=== PATIENT | male | born 1940 | race Caucasian/White ===

== ENCOUNTER 2020-05-14 07:52 | Inpatient (IN) | payer MEDICARE, SELFPAY ==
[2020-05-14] VITALS (53 sets, daily range): BP systolic 77–130; BP diastolic 49–91; PULSE 0–108; RESP 13–32; TEMP 36.7–37.3; O2SAT 77–97; BMI 28.4
--- NOTE | 2020-05-14 07:58 | XR_ITS ---
WS: [id number] PORTABLE CHEST HISTORY: dyspnea/cough COMPARISON: None available. Mild pulmonary hyperexpansion. No pneumonia. Normal vasculature. No pleural effusion or pneumothorax. Cardiac size: Normal. Mediastinum/Aorta: Mild atherosclerosis aorta. Diffuse osteopenia. XR/XR chest 1V portable [id number] IMPRESSION: Chronic emphysema and partially calcified aorta. No pneumonia.
[2020-05-14 08:25] LABS: Basophils % 0.3 %; Eosinophils % 0.1 %; Hematocrit 36.9 % (42.0-52.0); Hemoglobin 11.6 g/dL (11.7-16.6); Lymphocytes # 0.6 10^3/uL (0.8-4.8); Lymphocytes % 8.7 %; Mean Corpuscular HGB Conc 31.4 g/dL (30.0-36.0); Mean Corpuscular Volume 88.9 fL (80-94); Mean Platelet Volume 12.6 fL (7.4-10.4); Monocytes # 0.6 10^3/uL (0.2-0.9); Monocytes % 9.4 %; Neutrophils # 5.51 10^3/uL (1.8-7.7); Neutrophils % 80.9 %; Nucleated Red Blood Cells % 0 %; Platelet Count 81 10^3/cmm (130-400); Red Blood Count 4.15 10^6/uL (4.1-5.3); Red Cell Distribution Width 12.7 % (12.1-15.1); White Blood Count 6.8 10^3/uL (4.0-10.0)
[2020-05-14 08:51] LABS: Albumin Level 3.8 g/dL (3.5-5.2); Alkaline Phosphatase 86 IU/L (40-130); Blood Urea Nitrogen 45 mg/dL (8-23); Calcium 8.2 mg/dL (8.5-10.5); Carbon Dioxide 23 mmol/L (22-29); Chloride 103 mmol/L (98-107); Creatine Phosphokinase 145 U/L (39-308); Globulin 2.4 g/dL (1.3-4.6); Glucose 168 mg/dL (65-115); Osmolality Calculated 299 mOsm/kg (285-295); Sodium 137 mmol/L (136-145); Total Bilirubin 0.3 mg/dL (0.15-1.2); Total Protein 6.2 g/dL (6.6-8.7)
[2020-05-14] MEDS: sodium chloride 0.9% 500 ML 999 ML IV ×2 (09:03→11:43)
[2020-05-14 09:08] LABS: Anion Gap 15.4 (5-19); Potassium 4.4 mmol/L (3.5-5.1)
[2020-05-14 09:09] LABS: Alanine Aminotransferase 29 U/L (0-41); Aspartate Amino Transferase 32 U/L (0-40)
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
[2020-05-14] MEDS: HYDROcodone-acetaminophen 5-325 mg Tablet 1 TAB PO ×3 (09:52→22:04)
--- NOTE | 2020-05-14 10:24 | ECG_ITS ---
[facility] Test Date: 2020-05-14 Pat Name: Josue De Luna Department: Room: Gender: Male Survey Operations Director: : 1940 Requested By: Steffen Mandujano Order Number: [id number] Chika MD: Nelly Johnson M.D. Measurements Intervals [place] Rate: 101 P: [place]: QRS: -6 QRSD: 78 T: 66 QT: 342 QTc: 443 Interpretive Statements ATRIAL FLUTTER/TACHYCARDIA WITH RAPID VENTRICULAR RESPONSE LOW QRS VOLTAGE IN EXTREMITY LEADS [QRS DEFLECTION < 0.5 mV IN LIMB LEADS] MODERATE ST DEPRESSION [0.05+ mV ST DEPRESSION] No previous ECG available for comparison Electronically Signed On 05-14-2020 10:27:12 MANAGER STERILE PROCESSING by Nelly Johnson M.D. [id number]
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
[2020-05-14 11:43] LABS: Troponin(5th) Baseline 29 ng/L (0-15)
[2020-05-14 11:57] LABS: SARS Covid-2 Antigen Positive (Negative)
[2020-05-14 11:57] LABS: D Dimer 2.57 ug/mIFEU (0-0.59)
[2020-05-14 12:00] LABS: Magnesium 2.1 mg/dL (1.7-2.3)
[2020-05-14 12:01] LABS: Procalcitonin 0.08 ng/mL (0-0.5); Thyroid Stimulating Hormone 0.31 uIU/mL (0.27-4.20)
[2020-05-14 12:07] LABS: Troponin 5 2HR 27.73 ng/L (0-15)
[2020-05-14 12:13] LABS: Troponin 5 2HR Delta -1.27 ABS# (0-10)
--- NOTE | 2020-05-14 12:24 | ECG_ITS ---
[facility] Test Date: 2020-05-14 Pat Name: Josue De Luna Department: Room: Gender: Male Automobile Insurance Claim Examiner: : 1940 Requested By: Steffen Mandujano Order Number: [id number] Chika MD: Nelly Johnson M.D. Measurements Intervals [place] Rate: 99 P: [place]: QRS: 13 QRSD: 77 T: 63 QT: 362 QTc: 465 Interpretive Statements ATRIAL FLUTTER/TACHYCARDIA LOW QRS VOLTAGE IN EXTREMITY LEADS [QRS DEFLECTION < 0.5 mV IN LIMB LEADS] Compared to ECG 05/14/2020 08:02:53 ST (T wave) deviation no longer present Electronically Signed On 05-14-2020 13:25:40 BALL WORKER by Nelly Johnson M.D. [id number]
--- NOTE | 2020-05-14 13:30 | USCV_ITS ---
Josue De Luna Age: 79 Gender: M : 1940 Exam Date: 05/14/2020 14:14 Ordering Phys: Demetrius Gonsalves MD Technologist: Kaity Constantino Exam Location: [facility] Indication: AFIB. BP: 140 / 73 HR: 74 Rhythm: Sinus Technical Quality: Very technically difficult study MEASUREMENTS (Male / Female) Normal Values 2D ECHO LV Diastolic Diameter PLAX 3.7 cm 4.2 - 5.9 / 3.9 - 5.3 cm LV Systolic Diameter PLAX 1.7 cm LV Chamber Size 3.4 cm IVS Diastolic Thickness 1.8 cm 0.6 - 1.0 / 0.6 - 0.9 cm IVS Systolic Thickness 1.6 cm LVPW Diastolic Thickness 1.6 cm 0.6 - 1.0 / 0.6 - 0.9 cm LVPW Systolic Thickness 1.5 cm RV Chamber Size 4.2 cm LVOT Diameter 2.0 cm LV Ejection Fraction 2D Teich 84.8 % LV Ejection Fraction MOD 2C -29.2 % LV Ejection Fraction 2C AL -35.2 % LA Diameter 4.0 cm LA Width 3.6 cm LA Height 5.3 cm RA Width 2.4 cm RA Height 3.5 cm Aorta at Sinotubular Diameter 3.5 cm M-MODE LV Diastolic Diameter MM 5.6 cm 4.2 - 5.9 / 3.9 - 5.3 cm LV Systolic Diameter MM 2.3 cm LV Ejection Fraction MM Teich 88.6 % IVS Diastolic Thickness MM 1.1 cm 0.6 - 1.0 / 0.6 - 0.9 cm IVS Systolic Thickness MM 1.8 cm LVPW Diastolic Thickness MM 1.1 cm 0.6 - 1.0 / 0.6 - 0.9 cm LVPW Systolic Thickness MM 2.0 cm RV Diastolic Diameter MM 1.1 cm Aortic Annulus Diameter 3.7 cm LA Ao Ratio MM 1.2 MV E Point Septal Separation 0.3 cm DOPPLER AV Peak Velocity 184.0 cm/s LVOT Peak Velocity 107.0 cm/s AV Area Cont Eq vti 2.3 cm squared AV Area Cont Eq pk 1.9 cm squared MV Area PHT 6.9 cm squared Mitral E to A Ratio 1.0 MV E' Velocity 46.5 cm/s Mitral E to MV E' Ratio 8.1 Mitral E to LV E' Lateral Ratio 8.0 Mitral E to LV E' Septal Ratio 8.3 TR Peak Velocity 238.8 cm/s TR Peak Gradient 22.8 mmHg TR Mean Velocity 185.0 cm/s TR Mean Gradient 15.4 mmHg TR Velocity Time Integral 55.6 cm TV Peak E Velocity 91.0 cm/s Right Atrial Pressure 3.0 mmHg Pulmonary Artery Systolic Pressu 25.8 mmHg PV Peak Velocity 65.0 cm/s RV Acceleration Time 0.1 s RV Ejection Time 0.3 s RV AcT/ET 0.3 FINDINGS Left Ventricle Normal left ventricular size. LV systolic function is grossly normal. No regional wall motion abnormalities are seen. LVEF is 60 to 65%. Diastolic function is indeterminate Right Ventricle The right ventricle is normal in size and function. Right Atrium The right atrium is normal in size. Left Atrium The left atrium is normal in size. Mitral Valve Structurally normal mitral valve without significant stenosis or prolapse. There is no mitral regurgitation. Aortic Valve Grossly normal. No aortic stenosis is present. There is no aortic regurgitation. Tricuspid Valve Structurally normal tricuspid valve without significant stenosis or regurgitation. Insufficient TR jet to calculate RVSP. Pulmonic Valve Structurally normal pulmonic valve without significant stenosis. There is no pulmonic regurgitation. Pericardium Trivial pericardial effusion is noted. Aorta Normal ascending aorta dimension. CONCLUSIONS Normal LV systolic function with EF of 60 to 65%. Regional wall motion abnormalities are noted. Diastolic function is indeterminate. Trivial pericardial effusion is noted. No comparison studies are available. Matti Barnes MD (Electronically Signed) Final Date: 14 May 2020 16:53 S
--- NOTE | 2020-05-14 13:30 | US_ITS ---
WS: [id number] RENAL ULTRASOUND URINARY BLADDER ULTRASOUND HISTORY: renal failure COMPARISON: None available. TECHNIQUE: 2-D and color Doppler imaging of the kidney submitted. Right kidney: 9.7 cm x 4.5 cm x 5.4 cm. Normal size kidney. Cyst from the mid kidney measuring 3.0 x 2.0 x 2.5 cm. No hydronephrosis or solid mass. Left kidney: 11.1 cm x 5.5 cm x 5.0 cm. Normal size kidney. No hydronephrosis. Cortical cyst upper pole measures 1.8 x 1.5 x 1.7 cm. Aorta: Not visualized. Urinary Bladder: Well-distended urinary bladder. No intraluminal filling defect. No free fluid in the pelvis. US/US renal BI with PV bladder IMPRESSION: 1. No hydronephrosis. 2. Bilateral renal cysts as above.
--- NOTE | 2020-05-14 13:45 | PC.NURSE ---
Patient had a one minute run of v fib. Nurse responded to room. Patient alert and oriented. Dr. Gonsalves notified of event. Labs reviewed. No intervention at this time. Nurse to continue to monitor.
[2020-05-14 14:10] LABS: Glucose Point of Care 154 mg/dL (70-110)
[2020-05-14] MEDS: sodium chloride 0.9% 1,000 ML 100 ML IV (14:55)
[2020-05-14] MEDS: enoxaparin 100 mg/mL Syringe 90 MG SUBCUT (14:56)
[2020-05-14] MEDS: lanolin oint 7 gm 1 APPLIC TOPICAL (14:57)
[2020-05-14 15:10] LABS: Add Urine Microscopic? NO
[2020-05-14 15:18] LABS: Urine Color Yellow (Yellow)
[2020-05-14 15:19] LABS: Bilirubin Urine Neg (Negative); Blood Urine Neg (Negative); Glucose Urine UA Norm (Normal); Ketones Urine Negative (Negative); Leukocyte Esterase Urine Negative (Negative); Nitrate Urine Negative (Negative); Protein Urine Neg (Negative); Specific Gravity, Urine 1.015 (1.005-1.030); Urine Appearance Clear (CLEAR); Urobilinogen Urine Norm (Negative); pH Urine 5 (5-7)
--- NOTE | 2020-05-14 16:24 | ECG_ITS ---
[facility] Test Date: 2020-05-14 Pat Name: Josue De Luna Department: Room: 104 Gender: Male Motor Carrier Inspector: : 1940 Requested By: Steffen Mandujano Order Number: [id number] Chika MD: Nelly Johnson M.D. Measurements Intervals [place] Rate: 74 P: 72 [place]: 176 QRS: 25 QRSD: 81 T: 72 QT: 382 QTc: 425 Interpretive Statements SINUS RHYTHM Compared to ECG 05/14/2020 10:31:21 Atrial flutter no longer present Electronically Signed On 05-14-2020 13:25:22 LEACH TANK TENDER by Nelly Johnson M.D. [id number]
[2020-05-14 16:33] LABS: Troponin 5 6HR 24.27 ng/L (0-15)
[2020-05-14 16:35] LABS: Troponin 5 6HR Delta -4.73 ng/L (0-12)
[2020-05-14 17:26] LABS: Glucose Point of Care 211 mg/dL (70-110)
[2020-05-14] MEDS: metoprolol tartrate 25 mg Tablet 12.5 MG PO (18:08)
--- NOTE | 2020-05-14 18:53 | PC.NURSE ---
Addendum entered by Stacey Naik 05/14/20 18:55: patient arrrived to room at approximately 1330. Original Note: Patient arrived to CSU from ER. VSS. Patient oriented to room and call light
[2020-05-14 20:28] LABS: Glucose Point of Care 121 mg/dL (70-110)
[2020-05-15] VITALS (22 sets, daily range): BP systolic 96–123; BP diastolic 49–68; PULSE 59–96; RESP 13–25; TEMP 36.1–37.7; O2SAT 86–96
[2020-05-15] MEDS: sodium chloride 0.9% 1,000 ML 100 ML IV ×2 (02:26→18:09)
[2020-05-15] MEDS: enoxaparin 100 mg/mL Syringe 90 MG SUBCUT ×2 (02:31→14:57)
[2020-05-15 03:39] LABS: Basophils % 0.2 %; Hematocrit 33.6 % (42.0-52.0); Hemoglobin 10.4 g/dL (11.7-16.6); Lymphocytes # 0.9 10^3/uL (0.8-4.8); Lymphocytes % 15.8 %; Mean Corpuscular Hemoglobin 27.3 pg (28.0-34.0); Mean Corpuscular Volume 88.2 fL (80-94); Mean Platelet Volume 12.7 fL (7.4-10.4); Monocytes # 0.6 10^3/uL (0.2-0.9); Monocytes % 9.7 %; Neutrophils # 4.36 10^3/uL (1.8-7.7); Neutrophils % 73.8 %; Nucleated Red Blood Cells % 0 %; Platelet Count 80 10^3/cmm (130-400); Red Blood Count 3.81 10^6/uL (4.1-5.3); Red Cell Distribution Width 12.6 % (12.1-15.1); White Blood Count 5.9 10^3/uL (4.0-10.0)
[2020-05-15 04:08] LABS: Alanine Aminotransferase 24 U/L (0-41); Albumin Level 3.5 g/dL (3.5-5.2); Alkaline Phosphatase 76 IU/L (40-130); Anion Gap 14.5 (5-19); Aspartate Amino Transferase 28 U/L (0-40); Blood Urea Nitrogen 36 mg/dL (8-23); Calcium 8.3 mg/dL (8.5-10.5); Carbon Dioxide 23 mmol/L (22-29); Chloride 102 mmol/L (98-107); Globulin 2.2 g/dL (1.3-4.6); Glucose 103 mg/dL (65-115); Osmolality Calculated 289 mOsm/kg (285-295); Potassium 4.5 mmol/L (3.5-5.1); Sodium 135 mmol/L (136-145); Total Bilirubin 0.4 mg/dL (0.15-1.2); Total Protein 5.7 g/dL (6.6-8.7)
[2020-05-15 06:49] LABS: Glucose Point of Care 118 mg/dL (70-110)
[2020-05-15] MEDS: HYDROcodone-acetaminophen 5-325 mg Tablet 1 TAB PO ×3 (09:07→18:08)
[2020-05-15] MEDS: aspirin 81 mg EC Tablet PO (09:07)
[2020-05-15] MEDS: metoprolol tartrate 25 mg Tablet 12.5 MG PO ×2 (09:08→17:46)
[2020-05-15] MEDS: pantoprazole DR 40 mg Tablet PO (09:09)
[2020-05-15] MEDS: levothyroxine 150 mcg Tablet 75 MCG PO (09:09)
[2020-05-15] MEDS: atorvastatin 40 mg Tablet PO (09:09)
[2020-05-15] MEDS: predniSONE 20 mg Tablet 40 MG PO (09:10)
--- NOTE | 2020-05-15 10:33 | P.PN_ITS ---
Subjective Subjective: Interval history: Patient reports feeling slightly better this morning. Denies shortness of breath or chest pain. He is saturating in the mid 90s on 2 L by nasal cannula. Reports that he smokes 10 cigarettes/day. Vitals/I&O/Wt Last Vital Signs Temp 98.4 F 05/15/20 07:53 Pulse 96 05/15/20 07:53 Resp 24 H 05/15/20 07:53 BP 112/56 05/15/20 07:53 Pulse Ox 95 05/15/20 07:53 05/14/20 05/15/20 05/15/20 22:59 06:59 14:59 Intake Total 150 / 1150 1000 / 2150 120 / 120 Output Total 500 / 500 500 / 500 Balance -350 / 650 1000 / 1650 -380 / -380 Weight last 48 hrs Weight 92.533 kg Physical Exam Const: COMMON NORMALS: no acute distress and patient oriented x3 Resp: COMMON NORMALS: normal respiratory effort OTHER: Decreased air movement with scattered expiratory wheezing. Cardio: COMMON NORMALS: regular rate, regular rhythm and S2 normal heart sound present RATE: regular rate RHYTHM: regular rhythm HEART SOUNDS: S2 normal heart sound present OTHER: No lower extremity edema GI: COMMON NORMALS: Normal to inspection, nondistended, normoactive bowel sounds present, Soft to palpation and non-tender PALPATION: Yes Soft to palpation Neuro: COMMON NORMALS: patient oriented x3 and no focal motor deficits Data : 05/15/20 02:53 05/15/20 02:53 A&P Assessment and plan (1) Syncope: Patient with significant orthostasis in the emergency department. He has evidence of acute kidney injury. He has been hydrated and orthostasis is less profound on their measurements. Continue hydration Telemetry Hold diuretics Hold terazosin Status: Acute (2) Atrial flutter: CSU admission Check echocardiogram Check magnesium, TSH level Initiate metoprolol 12.5 mg twice daily Full dose anticoagulation with Lovenox Status: Acute (3) Acute kidney injury: Unknown chronicity Check urinalysis Hydration CK was checked and normal Closely monitor output Renal ultrasound Repeat BMP tomorrow to see if improvement is noted Status: Acute (4) Thrombocytopenia: Unknown chronicity Should not prevent aspirin, anticoagulation at this time Repeat platelet count tomorrow Status: Acute (5) Dyspnea: Etiology may be multifactorial I suspect he has an acute COPD exacerbation based on his x-ray, wheezing, smoking history Combivent inhalation 4 times daily Prednisone 40 mg daily Other concern could be Covid Check D-dimer. He will be fully anticoagulated for his atrial flutter. If dimer is significantly high could consider CTA once his creatinine is improved. Status: Acute (6) Exposure to COVID-19 virus: Check rapid Covid and if negative PTC Isolation Note that he reports his tested approximately 3 weeks ago. Status: Acute Additional A&P Information Tobacco dependency History of prostate cancer with history prostate symptoms. Hold terazosin Hypertension. Hold diuretics Hyperlipidemia. Continue statin Type 2 diabetes, sliding scale insulin History of CVA, continue aspirin GERD, continue Protonix Multiple other medical problems as outlined in the past medical history Full code Lovenox will suffice for DVT prophylaxis PLAN: Continue bronchodilators and steroids for treatment of COPD exacerbation. We will add ceftriaxone for pneumonia prevention. Since patient is hypoxic and kidney function is improving we will start him on remdesivir. I will continue normal saline for 1 more day. Monitor urinary output. Continue therapeutic anticoagulation for now and consider transitioning to Eliquis in a day or 2. Monitor CBC. Patient's thrombocytopenia likely secondary to infection. Attestations Medical Necessity Statement*: Patient with COVID-19 infection and COPD exacerbation requires close inpatient monitoring and treatment. Time Spent in Patient Care: 16 - 35 minutes Coding Level of Care Code Acute Security System Analyst for Yogesh Khoury Diagnoses Syncope R55 Atrial flutter I48.92 Acute kidney injury N17.9 Thrombocytopenia D69.6 Dyspnea R06.00 Exposure to COVID-19 virus Z20.828
[2020-05-15] MEDS: cefTRIAXone 1,000 MG in sodium chloride 0.9% (plus) 50 ML 100 MG IV (11:10)
[2020-05-15 11:28] LABS: Glucose Point of Care 151 mg/dL (70-110)
[2020-05-15] MEDS: dexamethasone 4 mg/mL INJ 6 MG IVP (12:31)
--- NOTE | 2020-05-15 13:07 | PC.NURSE ---
Nurse assisted patient with providing himself a bed bath.
[2020-05-15 16:07] LABS: Glucose Point of Care 230 mg/dL (70-110)
--- NOTE | 2020-05-15 16:15 | PC.NURSE ---
While patient was adjusting in bed, He accidentally pulled out his IV. Nurse inspected catheter and it was intact. Nurse started a new IV in the Left AC and continued medication administration.
[2020-05-15 20:28] LABS: Glucose Point of Care 263 mg/dL (70-110)
[2020-05-16] VITALS (10 sets, daily range): BP systolic 113–124; BP diastolic 46–81; PULSE 59–101; RESP 18–23; TEMP 36.4–37.1; O2SAT 92–99
--- NOTE | 2020-05-16 00:17 | PC.NURSE ---
PT IS RESTING IN BED. PT STATES THAT THEY ARE DOING MUCH BETTER. PT HAS 0 C/O. WILL CONTINUE TO MONITOR.
[2020-05-16] MEDS: HYDROcodone-acetaminophen 5-325 mg Tablet 1 TAB PO ×3 (01:50→20:20)
[2020-05-16] MEDS: enoxaparin 100 mg/mL Syringe 90 MG SUBCUT ×2 (01:50→15:44)
[2020-05-16 04:10] LABS: Basophils % 0.2 %; Hematocrit 32.6 % (42.0-52.0); Hemoglobin 10.2 g/dL (11.7-16.6); Lymphocytes # 0.6 10^3/uL (0.8-4.8); Lymphocytes % 11.4 %; Mean Corpuscular HGB Conc 31.3 g/dL (30.0-36.0); Mean Corpuscular Hemoglobin 27.9 pg (28.0-34.0); Mean Corpuscular Volume 89.3 fL (80-94); Mean Platelet Volume 13.1 fL (7.4-10.4); Monocytes # 0.6 10^3/uL (0.2-0.9); Monocytes % 11.4 %; Neutrophils # 3.97 10^3/uL (1.8-7.7); Neutrophils % 76.4 %; Nucleated Red Blood Cells % 0 %; Platelet Count 79 10^3/cmm (130-400); Red Blood Count 3.65 10^6/uL (4.1-5.3); Red Cell Distribution Width 12.7 % (12.1-15.1); White Blood Count 5.2 10^3/uL (4.0-10.0)
[2020-05-16] MEDS: sodium chloride 0.9% 1,000 ML 100 ML IV (04:30)
[2020-05-16 04:31] LABS: Alanine Aminotransferase 24 U/L (0-41); Albumin Level 3.3 g/dL (3.5-5.2); Alkaline Phosphatase 62 IU/L (40-130); Anion Gap 13.5 (5-19); Aspartate Amino Transferase 35 U/L (0-40); Blood Urea Nitrogen 33 mg/dL (8-23); Calcium 8.2 mg/dL (8.5-10.5); Carbon Dioxide 23 mmol/L (22-29); Chloride 105 mmol/L (98-107); Globulin 2.1 g/dL (1.3-4.6); Glucose 107 mg/dL (65-115); Magnesium 2.2 mg/dL (1.7-2.3); Osmolality Calculated 294 mOsm/kg (285-295); Potassium 3.5 mmol/L (3.5-5.1); Sodium 138 mmol/L (136-145); Total Bilirubin 0.2 mg/dL (0.15-1.2); Total Protein 5.4 g/dL (6.6-8.7)
[2020-05-16 05:07] LABS: Slide Review Slide Review Perform
--- NOTE | 2020-05-16 06:32 | PC.NURSE ---
PT IS RESTING IN BED. PT C/O OF RIB/SIDE PAIN. PRN NORCO WAS GIVEN FOR PAIN. PT STATES THAT THEY FEEL MUCH BETTER. WILL GIVE REPORT TO DAYSHIFT.
[2020-05-16 06:44] LABS: Glucose Point of Care 121 mg/dL (70-110)
[2020-05-16] MEDS: aspirin 81 mg EC Tablet PO (08:50)
[2020-05-16] MEDS: atorvastatin 40 mg Tablet PO (08:50)
[2020-05-16] MEDS: pantoprazole DR 40 mg Tablet PO (08:50)
[2020-05-16] MEDS: metoprolol tartrate 25 mg Tablet 12.5 MG PO ×2 (08:50→17:27)
[2020-05-16] MEDS: levothyroxine 150 mcg Tablet 75 MCG PO (08:50)
[2020-05-16] MEDS: predniSONE 20 mg Tablet 40 MG PO (08:50)
[2020-05-16 11:55] LABS: Glucose Point of Care 151 mg/dL (70-110)
[2020-05-16] MEDS: cefTRIAXone 1,000 MG in sodium chloride 0.9% (plus) 50 ML 100 MG IV (12:19)
--- NOTE | 2020-05-16 14:20 | PM.PN ---
Subjective Subjective: Interval history: Patient reports feeling better this morning. Requires 2 L of oxygen to saturate in the low 90s. Reports that he was able to get to the bedside commode. Denies cough or chest pain. Platelets remain stable. Vitals/I&O/Wt Last Vital Signs Temp 98.7 F 05/16/20 13:11 Pulse 70 05/16/20 09:43 Resp 18 05/16/20 09:43 BP 121/67 05/16/20 13:11 Pulse Ox 94 05/16/20 13:11 05/15/20 05/16/20 05/16/20 22:59 06:59 14:59 Intake Total 410 / 1770 1000 / 2770 120 / 120 Output Total 200 / 1200 Balance 210 / 570 1000 / 1570 120 / 120 Physical Exam Const: COMMON NORMALS: no acute distress and patient oriented x3 Resp: COMMON NORMALS: normal respiratory effort OTHER: Decreased air movement with mild diffuse expiratory wheezing. Cardio: COMMON NORMALS: regular rate, regular rhythm and S2 normal heart sound present RATE: regular rate RHYTHM: regular rhythm HEART SOUNDS: S2 normal heart sound present OTHER: No lower extremity edema GI: COMMON NORMALS: Normal to inspection, nondistended, normoactive bowel sounds present, Soft to palpation and non-tender PALPATION: Yes Soft to palpation Neuro: COMMON NORMALS: patient oriented x3 and no focal motor deficits Data : 05/16/20 03:28 05/16/20 03:28 A&P Assessment and plan (1) Syncope: Patient with significant orthostasis in the emergency department. He has evidence of acute kidney injury. He has been hydrated and orthostasis is less profound on their measurements. Continue hydration Telemetry Hold diuretics Hold terazosin Status: Acute (2) Atrial flutter: CSU admission Check echocardiogram Check magnesium, TSH level Initiate metoprolol 12.5 mg twice daily Full dose anticoagulation with Lovenox Status: Acute (3) Acute kidney injury: Unknown chronicity Check urinalysis Hydration CK was checked and normal Closely monitor output Renal ultrasound Repeat BMP tomorrow to see if improvement is noted Status: Acute (4) Thrombocytopenia: Unknown chronicity Should not prevent aspirin, anticoagulation at this time Repeat platelet count tomorrow Status: Acute (5) Dyspnea: Etiology may be multifactorial I suspect he has an acute COPD exacerbation based on his x-ray, wheezing, smoking history Combivent inhalation 4 times daily Prednisone 40 mg daily Other concern could be Covid Check D-dimer. He will be fully anticoagulated for his atrial flutter. If dimer is significantly high could consider CTA once his creatinine is improved. Status: Acute (6) Exposure to COVID-19 virus: Check rapid Covid and if negative PTC Isolation Note that he reports his tested approximately 3 weeks ago. Status: Acute (7) COPD with acute exacerbation: Status: Acute (8) Obstructive sleep apnea: On CPAP at home Status: Acute Additional A&P Information Tobacco dependency History of prostate cancer with history prostate symptoms. Hold terazosin Hypertension. Hold diuretics Hyperlipidemia. Continue statin Type 2 diabetes, sliding scale insulin History of CVA, continue aspirin GERD, continue Protonix Multiple other medical problems as outlined in the past medical history Full code Lovenox will suffice for DVT prophylaxis PLAN: Continue bronchodilators, ceftriaxone and steroids for treatment of COPD exacerbation. Continue remdesivir. Wean off oxygen as sats allow. Physical therapy. Patient will require outpatient PFTs and will likely benefit outpatient pulmonary evaluation. Will likely require nebulizer at home. Attestations Medical Necessity Statement*: Patient with acute COPD exacerbation and COVID-19 infection requires close inpatient monitoring and treatment. Time Spent in Patient Care: 16 - 35 minutes Coding Level of Care Code Acute Research Geneticist for Yogesh Khoury Diagnoses Syncope R55 Atrial flutter I48.92 Acute kidney injury N17.9 Thrombocytopenia D69.6 Dyspnea R06.00 Exposure to COVID-19 virus Z20.828 COPD with acute exacerbation J44.1 Obstructive sleep apnea G47.33
--- NOTE | 2020-05-16 14:57 | PC.NURSE ---
spoke with Dr clark with concerns of patient being on duplicate steroid therapy instructions to dexmethasone now
[2020-05-16] MEDS: hyDROXYzine 25 mg Capsule 50 MG PO (16:19)
[2020-05-16 16:41] LABS: Glucose Point of Care 239 mg/dL (70-110)
--- NOTE | 2020-05-16 19:21 | PC.NURSE ---
PAtient resting in bed watching TV at this time. Patient denies any pain or shortness of breath at this time.
[2020-05-16 20:58] LABS: Glucose Point of Care 170 mg/dL (70-110)
[2020-05-17] VITALS (15 sets, daily range): BP systolic 101–152; BP diastolic 59–81; PULSE 66–89; RESP 17–26; TEMP 36.4–37.1; O2SAT 93–97
[2020-05-17] MEDS: enoxaparin 100 mg/mL Syringe 90 MG SUBCUT (02:33)
[2020-05-17 02:58] LABS: Coronavirus Lab Test PTC Positive
[2020-05-17 05:00] LABS: Hematocrit 33.9 % (42.0-52.0); Hemoglobin 10.5 g/dL (11.7-16.6); Lymphocytes # 0.8 10^3/uL (0.8-4.8); Lymphocytes % 12.2 %; Mean Corpuscular Hemoglobin 27.7 pg (28.0-34.0); Mean Corpuscular Volume 89.4 fL (80-94); Mean Platelet Volume 13.4 fL (7.4-10.4); Monocytes # 0.6 10^3/uL (0.2-0.9); Monocytes % 8.8 %; Neutrophils # 5.42 10^3/uL (1.8-7.7); Neutrophils % 78.4 %; Nucleated Red Blood Cells % 0 %; Platelet Count 87 10^3/cmm (130-400); Red Blood Count 3.79 10^6/uL (4.1-5.3); Red Cell Distribution Width 12.7 % (12.1-15.1); White Blood Count 6.9 10^3/uL (4.0-10.0)
[2020-05-17 05:27] LABS: Alanine Aminotransferase 26 U/L (0-41); Albumin Level 3.4 g/dL (3.5-5.2); Alkaline Phosphatase 60 IU/L (40-130); Anion Gap 12.1 (5-19); Aspartate Amino Transferase 33 U/L (0-40); Blood Urea Nitrogen 32 mg/dL (8-23); Calcium 8.4 mg/dL (8.5-10.5); Carbon Dioxide 25 mmol/L (22-29); Chloride 107 mmol/L (98-107); Glucose 93 mg/dL (65-115); Magnesium 2.2 mg/dL (1.7-2.3); Osmolality Calculated 297 mOsm/kg (285-295); Potassium 4.1 mmol/L (3.5-5.1); Sodium 140 mmol/L (136-145); Total Bilirubin 0.2 mg/dL (0.15-1.2); Total Protein 5.4 g/dL (6.6-8.7)
[2020-05-17 06:04] LABS: Slide Review Slide Review Perform
--- NOTE | 2020-05-17 06:05 | PC.NURSE ---
End of shift: Patient has rested well this shift. Patient remains alert and oriented with stable vital signs.
[2020-05-17 06:39] LABS: Glucose Point of Care 82 mg/dL (70-110)
[2020-05-17] MEDS: pantoprazole DR 40 mg Tablet PO (07:45)
[2020-05-17] MEDS: predniSONE 20 mg Tablet 40 MG PO (07:45)
[2020-05-17] MEDS: atorvastatin 40 mg Tablet PO (07:45)
[2020-05-17] MEDS: aspirin 81 mg EC Tablet PO (07:45)
[2020-05-17] MEDS: metoprolol tartrate 25 mg Tablet 12.5 MG PO ×2 (07:45→17:03)
[2020-05-17] MEDS: levothyroxine 150 mcg Tablet 75 MCG PO (07:46)
--- NOTE | 2020-05-17 10:14 | P.PN_ITS ---
Subjective Subjective: Interval history: Josue reports he feels better. Able to eat and drink. Had some shortness of breath this morning that was alleviated with an inhaler. Medications: Reviewed: Yes Vitals/I&O/Wt Last Vital Signs Temp 97.6 F 05/17/20 07:20 Pulse 79 05/17/20 07:20 Resp 21 H 05/17/20 07:20 BP 117/65 05/17/20 07:20 Pulse Ox 97 05/17/20 07:20 05/16/20 05/17/20 05/17/20 22:59 06:59 14:59 Intake Total 580 / 750 120 / 870 240 / 240 Output Total 300 / 300 925 / 1225 200 / 200 Balance 280 / 450 -805 / -355 40 / 40 Physical Exam Narrative: EXAM NARRATIVE: General exam no apparent distress, on 2 L of oxygen when I entered the room. Cardiovascular regular in rhythm without murmur Lungs few expiratory wheezes Abdomen is soft with positive bowel sounds Extremities no cyanosis clubbing or edema Data : 05/17/20 04:03 05/17/20 04:03 A&P Assessment and plan (1) Syncope: Patient with significant orthostasis in the emergency department. He has evidence of acute kidney injury. He has been hydrated and orthostasis is less profound on their measurements. Hydrated him. Held diuretics and terazosin. This is resolved. Status: Acute (2) Atrial flutter: Continue telemetry Continue metoprolol Echocardiogram was checked and EF is preserved Magnesium and TSH level were normal Change Lovenox to Eliquis Consider cardiology follow-up as an outpatient A short samuel of atrial flutter with a rate of 150, asymptomatic was noted last night. Status: Acute (3) Acute kidney injury: Unknown chronicity Urinalysis was negative This appears to have stabilized CK was checked and normal Renal ultrasound with no evidence of obstruction Status: Acute (4) Thrombocytopenia: Stable Status: Acute (5) Dyspnea: Etiology may be multifactorial Consistent with acute COPD exacerbation as well as Covid Combivent inhalation 4 times daily Continue prednisone 40 mg a day Continue remdesivir. Wean off oxygen as tolerated Status: Acute (6) Exposure to COVID-19 virus: Check rapid Covid and if negative PTC Isolation Note that he reports his tested approximately 3 weeks ago. Status: Acute (7) COPD with acute exacerbation: Continue prednisone Rocephin was added Combivent Status: Acute (8) Obstructive sleep apnea: On CPAP at home Status: Acute Additional A&P Information Tobacco dependency. Counseled on stopping History of prostate cancer with history prostate symptoms. Hold terazosin Hypertension. Hold diuretics Hyperlipidemia. Continue statin Type 2 diabetes, sliding scale insulin History of CVA, continue aspirin GERD, continue Protonix Multiple other medical problems as outlined in the past medical history Full code Eliquis for DVT prophylaxis Attestations Medical Necessity Statement*: Needs continued hospitalization for treatment of COVID-19 with antiviral, and continue close follow-up of arrhythmia. 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
[2020-05-17] MEDS: cefTRIAXone 1,000 MG in sodium chloride 0.9% (plus) 50 ML 100 MG IV (10:23)
[2020-05-17] MEDS: HYDROcodone-acetaminophen 5-325 mg Tablet 1 TAB PO (10:24)
--- NOTE | 2020-05-17 11:15 | DCPLANNER ---
IMM completed on 05/17/2020 @ 6254 over the phone due to covid testing. Copy of rights given to nurse to give to pt.
[2020-05-17 11:17] LABS: Glucose Point of Care 168 mg/dL (70-110)
--- NOTE | 2020-05-17 16:00 | PC.NURSE ---
Pt looked anxious and restless stating he needs his oxygen back on since he can't breathe Pt lung sounds has inspiratory and expiratory wheezing. Reassured pt that he is on room air SpO2 at 92-95%. Pt stated he wants oxygen back on. Educated pt that he is wheezing and will call RT first for a breathing treatment. Called RT. Noticed pt is on PRN Vistaril for anxiety on the e-Aug. Notified
[2020-05-17 16:07] LABS: Glucose Point of Care 311 mg/dL (70-110)
[2020-05-17] MEDS: lanolin oint 7 gm 1 APPLIC TOPICAL (16:22)
--- NOTE | 2020-05-17 16:37 | PC.NURSE ---
Checked back on pt. Pt looked calm and denies any shortness of breath Offered him Vistaril PRN for anxiety. Pt stated he will refuse it for now. and wait until tonight. I told him he can have it 4x a day as needed. Pt refused for now. Charlesril returned back to [facility].
[2020-05-17] MEDS: apixaban 5 mg Tablet PO (17:03)
--- NOTE | 2020-05-17 17:46 | PC.NURSE ---
RT applied oxygen back on the pt for comfort at 0.5 L/min per NC
--- NOTE | 2020-05-17 19:22 | PC.NURSE ---
Asked Patient if he would like to wash up. Patient stated That he already cleaned up today. RN notified.
[2020-05-17 20:57] LABS: Glucose Point of Care 198 mg/dL (70-110)
[2020-05-18] VITALS (13 sets, daily range): BP systolic 110–132; BP diastolic 57–74; PULSE 68–117; RESP 12–24; TEMP 36.1–36.9; O2SAT 93–96
[2020-05-18] MEDS: HYDROcodone-acetaminophen 5-325 mg Tablet 1 TAB PO ×2 (00:48→04:43)
[2020-05-18 05:22] LABS: Alanine Aminotransferase 34 U/L (0-41); Albumin Level 3.4 g/dL (3.5-5.2); Alkaline Phosphatase 62 IU/L (40-130); Aspartate Amino Transferase 42 U/L (0-40); Blood Urea Nitrogen 35 mg/dL (8-23); Calcium 8.6 mg/dL (8.5-10.5); Carbon Dioxide 26 mmol/L (22-29); Chloride 107 mmol/L (98-107); Globulin 2.2 g/dL (1.3-4.6); Glucose 96 mg/dL (65-115); Magnesium 2.2 mg/dL (1.7-2.3); Osmolality Calculated 302 mOsm/kg (285-295); Sodium 142 mmol/L (136-145); Total Bilirubin 0.3 mg/dL (0.15-1.2); Total Protein 5.6 g/dL (6.6-8.7)
[2020-05-18 05:23] LABS: Anion Gap 13.1 (5-19); Potassium 4.1 mmol/L (3.5-5.1)
[2020-05-18 05:24] LABS: Basophils % 0.2 %; Hematocrit 35.4 % (42.0-52.0); Hemoglobin 10.1 g/dL (11.7-16.6); Lymphocytes % 20.3 %; Mean Corpuscular HGB Conc 28.5 g/dL (30.0-36.0); Mean Corpuscular Hemoglobin 27.6 pg (28.0-34.0); Mean Corpuscular Volume 96.7 fL (80-94); Monocytes # 0.6 10^3/uL (0.2-0.9); Monocytes % 12.6 %; Neutrophils # 3.11 10^3/uL (1.8-7.7); Nucleated Red Blood Cells % 0 %; Platelet Count 105 10^3/cmm (130-400); Red Blood Count 3.66 10^6/uL (4.1-5.3); Red Cell Distribution Width 12.9 % (12.1-15.1); White Blood Count 4.8 10^3/uL (4.0-10.0)
--- NOTE | 2020-05-18 06:16 | PC.NURSE ---
End of shift: Patient has rested off and on this shift. Patient has had R hip pain throughout the shift. Patient states he had a fall at home. Patient was on room air and maintained above 92%. About 0500 patient said he felt short of breath and needed his oxygen back. Denied wanting a breathing treatment. 1L nasal applied. Patient saturations 96%. Patient stated that cured it.
[2020-05-18 06:36] LABS: Glucose Point of Care 107 mg/dL (70-110)
--- NOTE | 2020-05-18 07:24 | XR_ITS ---
WS: [id number] XR hip LT 2-3V wo/w pel* [id number] REASON FOR EXAM: Hip Pain FINDINGS: Minimal narrowing of the left weightbearing hip joint space. There is subarticular sclerosis and cyst ic change in the acetabulum. The femoral head is relatively normal. The femoral head and neck junction show mild convex study. No bony impingement changes identified. No fracture identified. Normal anatomic alignment. No soft tissue abnormality. XR/XR hip LT 2-3V wo/w pel* [id number] IMPRESSION: Mild degenerative changes for age. Femoral impingement configuration of the femoral head and neck junction without bony findings of impingement.
--- NOTE | 2020-05-18 07:59 | PC.NURSE ---
patient reporting pain in rt hip and legs 08/04 Dr stovall notified: instructions obtained to obtain a hip and pelvis portable xray
[2020-05-18] MEDS: predniSONE 20 mg Tablet 40 MG PO (08:50)
[2020-05-18] MEDS: metoprolol tartrate 25 mg Tablet 12.5 MG PO ×2 (08:50→18:46)
[2020-05-18] MEDS: atorvastatin 40 mg Tablet PO (08:50)
[2020-05-18] MEDS: pantoprazole DR 40 mg Tablet PO (08:50)
[2020-05-18] MEDS: levothyroxine 150 mcg Tablet 75 MCG PO (08:50)
[2020-05-18] MEDS: oxyCODONE 5 mg IR Tab/Cap PO ×2 (08:51→13:13)
[2020-05-18] MEDS: apixaban 5 mg Tablet PO ×2 (08:53→18:46)
[2020-05-18] MEDS: aspirin 81 mg EC Tablet PO (08:53)
--- NOTE | 2020-05-18 11:22 | PM.PN ---
Subjective Subjective: Interval history: Josue reports he is having quite a bit of left flank pain, suprapubic pain. He reports he is not urinating as much. He has not had a bowel movement in the last for 5 days. He thinks his breathing is better. Medications: Reviewed: Yes Vitals/I&O/Wt Last Vital Signs Temp 97.8 F 05/18/20 10:32 Pulse 68 05/18/20 10:32 Resp 14 05/18/20 10:32 BP 110/61 05/18/20 10:32 Pulse Ox 96 05/18/20 10:32 05/17/20 05/18/20 05/18/20 22:59 06:59 14:59 Intake Total 480 / 890 150 / 1040 Output Total 500 / 800 800 / 1600 460 / 460 Balance - -650 / -560 -460 / -460 Physical Exam Narrative: EXAM NARRATIVE: General exam no apparent distress, on 2 L of oxygen when I entered the room. Cardiovascular regular in rhythm without murmur Lungs few expiratory wheezes Abdomen is soft with positive bowel sounds. No real tenderness, with the exception of his low back. Extremities no cyanosis clubbing or edema Data : 05/18/20 04:19 05/18/20 04:19 A&P Assessment and plan (1) Syncope: Patient with significant orthostasis in the emergency department. He has evidence of acute kidney injury. He has been hydrated and orthostasis is less profound on their measurements. Hydrated him. Held diuretics and terazosin. This is resolved. Status: Acute (2) Atrial flutter: Continue telemetry Continue metoprolol Echocardiogram was checked and EF is preserved Magnesium and TSH level were normal Change Lovenox to Peytonquis Consider cardiology follow-up as an outpatient A short samuel of atrial flutter with a rate of 150, asymptomatic was noted last night. Overall he appears well controlled Status: Acute (3) Acute kidney injury: Unknown chronicity Urinalysis was negative This appears to have stabilized CK was checked and normal Renal ultrasound with no evidence of obstruction Today he is having some abdominal discomfort. Post void residual by bladder scan is approximately [address] a Anderson, repeat urinalysis. Has some constipation and will treat this as well. Initiate Flomax, monitoring for any recurrence of his dizziness. Status: Acute (4) Thrombocytopenia: Stable, to slightly improved Status: Acute (5) Dyspnea: Etiology may be multifactorial Consistent with acute COPD exacerbation as well as Covid Combivent inhalation 4 times daily Continue prednisone 40 mg a day Continue remdesivir. He is weaned off oxygen this morning. Status: Acute (6) Exposure to COVID-19 virus: He tested positive for Covid on admission. Covid +3 weeks ago. Status: Acute (7) COPD with acute exacerbation: Continue prednisone Rocephin was added. Continue currently Combivent Status: Acute (8) Obstructive sleep apnea: On CPAP at home Status: Acute Additional A&P Information Tobacco dependency. Counseled on stopping History of prostate cancer with history prostate symptoms. Terazosin discontinued. Start Flomax. Less association with orthostasis. Hypertension. Hold diuretics Hyperlipidemia. Continue statin Type 2 diabetes, sliding scale insulin History of CVA, continue aspirin GERD, continue Protonix Multiple other medical problems as outlined in the past medical history Full code Eliquis for DVT prophylaxis Attestations Medical Necessity Statement*: Needs continued hospitalization for treatment of COVID-19 pneumonia, assessment of urinary retention. Coding Level of Care Code Acute Biomedical Equipment Specialist for Yogesh Fwmiranda Diagnoses Syncope R55 Atrial flutter I48.92 Acute kidney injury N17.9 Thrombocytopenia D69.6 Dyspnea R06.00 Exposure to COVID-19 virus Z20.828 COPD with acute exacerbation J44.1 Obstructive sleep apnea G47.33
[2020-05-18 11:26] LABS: Glucose Point of Care 135 mg/dL (70-110)
[2020-05-18] MEDS: bisacodyl 10 mg Supp PR (11:27)
[2020-05-18] MEDS: cefTRIAXone 1,000 MG in sodium chloride 0.9% (plus) 50 ML 100 MG IV (11:27)
[2020-05-18] MEDS: sennosides-docusate Tablet 2 TAB PO ×2 (11:27→18:46)
[2020-05-18] MEDS: polyethylene glycol 3350 Pkt 17 gm PO ×2 (11:27→18:46)
[2020-05-18 11:45] LABS: Blood Urine 2+ (Negative); Glucose Urine UA 1+ (Normal); Ketones Urine Negative (Negative); Protein Urine Neg (Negative); Specific Gravity, Urine 1.015 (1.005-1.030); Urine Appearance Clear (CLEAR); Urine Color Yellow (Yellow)
[2020-05-18 11:46] LABS: Add Urine Microscopic? YES; Bilirubin Urine Neg (Negative); Leukocyte Esterase Urine Negative (Negative); Nitrate Urine Negative (Negative); Urobilinogen Urine Norm (Negative)
--- NOTE | 2020-05-18 11:47 | PC.RESP ---
SMOKING CESSATION AND PULMONARY REHAB INFORMATION SENT TO PATIENT.
[2020-05-18 11:57] LABS: Add Urine Culture? No; Bacteria Urine TRACE /hpf; RBC Urine 0-4 /hpf (0-2); Squamous Epithelial Cell Urine 0-4 /hpf (0-5)
--- NOTE | 2020-05-18 14:33 | PC.NURSE ---
patient has been reporting extreme pain rated 15/10 per patient. Patient had pain medications at 0445 this am with no relief Dr stovall notified and orders was placed. After Dr brown instructions to bladder scan due to patients HX on prostate cancer. patient found to have 600ml urine in bladder instructions given to place slater catheter for acute retention. patient tolerated well and reported a 50% decrease in pain level after placement of slater. patient also reported he had not had a good BM in 5 days that he could remember. Dr stovall notified and orders was placed, orders carried out with little to no results from medications. patient has had a decreased appetite this shift. patient now at this time (1439) reporting unbearable pain again in left hip flank and groin area Dr stovall to place further orders.
[2020-05-18] MEDS: ibuprofen 600 mg Tablet PO (15:49)
[2020-05-18] MEDS: gabapentin 100 mg Capsule PO ×2 (15:49→19:42)
[2020-05-18 16:38] LABS: Glucose Point of Care 288 mg/dL (70-110)
[2020-05-18] MEDS: LORazepam 0.5 mg Tablet PO (18:46)
[2020-05-18] MEDS: tamsulosin 0.4 mg Capsule PO (19:42)
[2020-05-18] MEDS: oxyCODONE 5 mg IR Tab/Cap 10 MG PO (21:08)
[2020-05-18 21:29] LABS: Glucose Point of Care 240 mg/dL (70-110)
[2020-05-19] VITALS (13 sets, daily range): BP systolic 109–143; BP diastolic 44–91; PULSE 73–90; RESP 15–20; TEMP 36.1–37; O2SAT 91–100
[2020-05-19] MEDS: acetaminophen 325 mg Tablet 650 MG PO (01:09)
[2020-05-19] MEDS: oxyCODONE 5 mg IR Tab/Cap 10 MG PO ×2 (01:10→06:34)
--- NOTE | 2020-05-19 05:27 | PC.NURSE ---
End of shift: Patient has had no BM's this shift. Offered prune juice but did not drink it. Patient said he is passing gas and has active bowel sounds. Patient has rested off and on this shift. Patient has slept with oxygen on due to saturations dropping while he sleeps to 86%. Patient remains alert and oriented and vitals are stable at this time.
[2020-05-19 06:14] LABS: Glucose Point of Care 118 mg/dL (70-110)
[2020-05-19 06:35] LABS: Blood Urea Nitrogen 31 mg/dL (8-23); Calcium 8.5 mg/dL (8.5-10.5); Carbon Dioxide 27 mmol/L (22-29); Chloride 105 mmol/L (98-107); Glucose 108 mg/dL (65-115); Osmolality Calculated 299 mOsm/kg (285-295); Sodium 141 mmol/L (136-145)
[2020-05-19 06:36] LABS: Anion Gap 13.1 (5-19); Potassium 4.1 mmol/L (3.5-5.1)
--- NOTE | 2020-05-19 06:57 | XR_ITS ---
WS: [id number] XR chest 1V portable [id number] REASON FOR EXAM: follow up pneumonia FINDINGS: The chest is unchanged compared to previous examination of 05/14/2020. Mild tortuosity of the thoracic aorta with normal heart size. Chronic interstitial change in the lower lung feldman. No active pulmonary parenchymal or pleural dise ase. XR/XR chest 1V portable [id number] IMPRESSION: Stable chest. No active disease identified.
[2020-05-19 08:45] LABS: C Reactive Protein 6.8 mg/L (0.0-4.9); Ferritin 370 ng/mL (30-400)
[2020-05-19] MEDS: levothyroxine 150 mcg Tablet 75 MCG PO (09:01)
[2020-05-19] MEDS: sennosides-docusate Tablet 2 TAB PO (09:01)
[2020-05-19] MEDS: polyethylene glycol 3350 Pkt 17 gm PO (09:01)
[2020-05-19] MEDS: atorvastatin 40 mg Tablet PO (09:01)
[2020-05-19] MEDS: apixaban 5 mg Tablet PO (09:02)
[2020-05-19] MEDS: pantoprazole DR 40 mg Tablet PO (09:02)
[2020-05-19] MEDS: gabapentin 100 mg Capsule PO (09:02)
[2020-05-19] MEDS: metoprolol tartrate 25 mg Tablet 12.5 MG PO (09:03)
[2020-05-19] MEDS: aspirin 81 mg EC Tablet PO (09:03)
[2020-05-19] MEDS: predniSONE 20 mg Tablet 40 MG PO (09:04)
--- NOTE | 2020-05-19 09:26 | DCPLANNER ---
Pt is currently no access. Pt's nurse Daina provided pt with IMM rights and gave copy of rights to pt on 05/19/2020 @ 8375.
[2020-05-19] MEDS: cefTRIAXone 1,000 MG in sodium chloride 0.9% (plus) 50 ML 100 MG IV (11:03)
--- NOTE | 2020-05-19 12:10 | P.DS_ITS ---
Discharge Providers Date of Admission: 05/14/20 11:17 Date of Discharge: May 19, 2020 Attending Provider at Admission: Demetrius Gonsalves MD Attending Provider at Discharge: Demetrius Gonsalves MD Diagnoses at Discharge Discharge Diagnosis (1) Syncope: Status: Acute (2) Atrial flutter: Status: Acute (3) Acute kidney injury: Status: Acute (4) Thrombocytopenia: Status: Acute (5) Dyspnea: Status: Acute (6) Exposure to COVID-19 virus: Status: Acute (7) COPD with acute exacerbation: Status: Acute (8) Obstructive sleep apnea: Status: Acute Reason for Visit Reason for Visit: SYNCOPAL EPISODE Hospital Course Hospital Course Josue is a 79-year-old white male who presented to the hospital with history of syncope. He was found to be significantly orthostatic, and in atrial flutter. Covid testing was positive. He was rehydrated. His diuretics and terazosin were held. Magnesium level and TSH were checked and normal. Metoprolol 12.5 mg twice daily was initiated. Platelet count was also noted to be low, which improved slightly during the hospitalization but may be chronic. Acute kidney injury was also noted, which responded to hydration. Echocardiogram was performed and ejection fraction largely within normal limits. Remdesivir, was given for concerns of positive Covid and hypoxemia. By May 18, patient had improved to a substantial degree and weaned off oxygen completely during the day. He did go back on this at night, as we were not using his CPAP to try not to nebulized Covid. Following day he again needed no oxygen. He felt much better. He wished to go home. Chest x-ray was repeated showing no worsening of any infiltrates. During his hospital stay he also had some back pain, which seemed more like sciatic in nature. X-rays were checked of his left hip and pelvis which demonstrated no fracture. Pain medication was initiated for this. He did have urinary retention as well, so Anderson had to be placed. Anderson will be continued at discharge. Flomax was initiated while in the hospital and no evidence of dizziness with start of this medication. He will need to follow-up with his primary care provider in several days, urology within 7 to 10 days, cardiology in 3 to 4 weeks. Anticoagulation was started for stroke prevention secondary to atrial flutter. He will not restart terazosin, diuretics, or oral sulfonylurea. Physical Exam Urinary Catheter Management^: Anderson: Cath Placed During This Visit: yes Reason for Continuing Indwelling Catheter: Acute Urinary Retention or Obstruction Urinary Catheter Date of Insertion: 05/18/20 Urinary Catheter Time of Insertion: 11:00 Discharge Data Data Completed and Pending: Completed Studies During Hospitalization Category Date Time Status XR chest 1V peggy ble 56109 Routine Exams 05/19/20 06:57 Completed XR chest 1V peggy ble 31912 Stat Exams 05/14/20 07:58 Completed XR hip LT 2-3V wo /w pel* 14480 Rout ine Exams 05/18/20 07:24 Completed CV echo complete* 14630 Urgent Ultrasound 05/14/20 13:30 Completed US renal BI with PV bladder Routine Ultrasound 05/14/20 13:30 Completed Labs from last 24 hours 05/19/20 05/19/20 05/19/20 08:45 05:56 04:40 D-Dimer 0.80 H Sodium Potassium Chloride Carbon Dioxide Anion Gap BUN Creatinine GFR Calculation Glucose POC Glucose 118 Calculated Osmolal ity Calcium Ferritin 370 C-Reactive Protein 6.8 H Procalcitonin 0.10 05/19/20 05/18/20 05/18/20 04:40 20:26 16:21 D-Dimer Sodium 141 Potassium 4.1 Chloride 105 Carbon Dioxide 27 Anion Gap 13.1 BUN 31 H Creatinine 1.2 GFR Calculation Not Reportable Glucose 108 POC Glucose 240 288 Calculated Osmolal ity 299 H Calcium 8.5 Ferritin C-Reactive Protein Procalcitonin Vitals: Last Vital Signs Temp 98.6 F 05/19/20 03:50 Pulse 83 05/19/20 10:53 Resp 20 H 05/19/20 10:53 BP 109/44 05/19/20 10:53 Pulse Ox 98 05/19/20 10:53 Discharge Plan Discharge Patient Disposition: Home Condition: Stable Prescriptions: New hydrocodone-acetaminophen 5-325 mg tablet 1 tab PO Q6H PRN (Reason: pain) Qty: 20 RF: 0 Combivent Respimat 20-100 mcg/actuation Mist 1 puff inhalation Q6H.RESPIRATORY Qty: 4 RF: 0 prednisone 20 mg Tablet 40 mg PO DAILY Qty: 6 RF: 0 polyethylene glycol 3350 17 gram Powder In Packet 17 g PO BID Qty: 60 RF: 0 tamsulosin 0.4 mg Capsule 0.4 mg PO BEDTIME Qty: 30 RF: 0 metoprolol tartrate 25 mg Tablet 12.5 mg PO BID Qty: 30 RF: 0 Eliquis 5 mg Tablet 5 mg PO BID Qty: 60 RF: 0 sennosides-docusate sodium 8.6-50 mg Tablet 2 tab PO BID Qty: 120 RF: 0 Continued atorvastatin 40 mg tablet 40 mg PO DAILY RF: 0 levothyroxine 75 mcg tablet 75 mcg PO DAILY RF: 0 pantoprazole 40 mg tablet,delayed release (DR/EC) 40 mg PO DAILY RF: 0 aspirin 81 mg Tablet 81 mg PO DAILY RF: 0 Discontinued azithromycin 250 mg tablet 250 mg PO . DIRECTED RF: 0 triamterene-hydrochlorothiazid 37.5-25 mg capsule 1 cap PO DAILY RF: 0 terazosin 2 mg capsule 2 mg PO DAILY RF: 0 albuterol sulfate 90 mcg/actuation HFA aerosol inhaler 2 puff INHALATION Q6H PRN (Reason: Shortness Of Breath) RF: 0 glipizide 5 mg tablet 5 mg PO BID RF: 0 hydroxychloroquine 200 mg tablet 200 mg PO TID RF: 0 Discharge Orders: Discharge Order (Routine); Ordered 05/19/20 Ordered By: Demetrius Gonsalves Other Ambulatory Orders: DME: Nebulizer with Neb Kit (Order) Location: None Selected Ordered By: Saul Acosta Discharge Diet: Cardiac Discharge Activity: Increase activity as tolerated Activity Restrictions/Additional Instructions: Home oxygen evaluation prior to discharge Cardiology follow-up for atrial flutter/fibrillation in 3 to 4 weeks Follow-up with urology 7 to 10 days Discharge with urinary catheter Follow-up with primary care provider 2 to 3 days by telehealth Discharge Attestations Time Spent in Discharge Care*: greater than 30 min Quality Metrics Clinical Quality Measures During this hospital stay, did patient experience: None Coding Level of Care Code Acute Manager Personnel Selection for [employer] [facility] Diagnoses Syncope R55 Atrial flutter I48.92 Acute kidney injury N17.9 Thrombocytopenia D69.6 Dyspnea R06.00 Exposure to COVID-19 virus Z20.828 COPD with acute exacerbation J44.1 Obstructive sleep apnea G47.33
[2020-05-19 12:23] LABS: Glucose Point of Care 199 mg/dL (70-110)
--- NOTE | 2020-05-19 16:10 | PC.NURSE ---
Patient discharge home with home health and family care patient alert oriented and in stable condition. Patient provided with all discharge instructions and prescriptions as well as follow up care appointments. Patient verbalized understanding of all instructions provided. Patient assisted to wheel chair and accompanied to POV with all belongings in hand.
--- NOTE | 2020-05-21 11:34 | PC.SOCIAL ---
Spoke with the patient's on the phone about the discharge information they received. She did have a couple questions about the medications, I did notice that he was prescribed Eliquist and did not have a coupon. I informed her that I would call the pharmacy and see if they could still use a coupon, the pharmacy ran the coupon and saved the patient $20 in copay. I also asked the pharmacy about pricing for an O2 swatch checker. I was able to relay the info to the patients . She was grateful for the help. spoke about signs and symptoms to watch for such as; blue lips or face, fever of 104 or higher, trouble breathing or catching breath, chest pain lasting longer than 5 minute, confusion or trouble waking up. We also spoke about ways to improve the immune system, these included; eating and drinking well, eating fruits and vegetables, lean meat, low fat dairy products, keeping up with immunizations such as flu/pneumonia/shingles shots, going to all appointments and follow ups, lessening and stress. We also spoke about ways to stop or prevent the spread of the COVID 19. These included; social distancing at all times, washing hands longer than 20 seconds with a good lather, sanitizing surfaces in home and in vehicle, masking up when possible and washing any cloth masks after use and allow them to dry completely before next use, sneezing or coughing into arm, restricting company or going out in public. We spoke a little about the benefits of plasma donation. The stated that they would be interested. The stated that she would set the appointment up with Dr. Wilson the PCP. I informed her if I could help with any of that to let me know she stated that she would.
--- NOTE | 2020-05-21 12:42 | PC.SOCIAL ---
Called [facility] to ask when they would be out, I spoke with Sarika she stated that they are not scheduled to admit until May due to the COVID Precautions, She did have a concern for the patients insurance because he has [employer], she called billing and made sure the insurance was ran. She said she would get back to me as soon as she hears something.
--- NOTE | 2020-05-21 13:48 | PC.SOCIAL ---
The HH called and stated that they will be picking the patient up for admitt on Sunday. Insurance went through just fine. I sent DC summary to Sarika with HH.
== END 2020-05-19 16:05 | disposition home or self-care (01) | DRG 177 ==
LOC: ER 11:10 → CSU 12:14
PROVIDERS: Internal Medicine; Admitting Provider Internal Medicine; Emergency Provider Family Medicine; Visit Provider Internal Medicine
DX: U07.1 COVID-19 (principal); J96.01 Acute respiratory failure with hypoxia; J12.89 Other viral pneumonia; N17.9 Acute kidney failure, unspecified; I48.92 Unspecified atrial flutter; J44.1 Chronic obstructive pulmonary disease with (acute) exacerbation; I95.1 Orthostatic hypotension; Z86.73 Personal history of transient ischemic attack (TIA), and cerebral infarction without residual deficits; E11.9 Type 2 diabetes mellitus without complications; K21.9 Gastro-esophageal reflux disease without esophagitis; H91.90 Unspecified hearing loss, unspecified ear; E78.5 Hyperlipidemia, unspecified; I10 Essential (primary) hypertension; E03.9 Hypothyroidism, unspecified; Z85.46 Personal history of malignant neoplasm of prostate; Z90.79 Acquired absence of other genital organ(s); Z90.49 Acquired absence of other specified parts of digestive tract; F17.210 Nicotine dependence, cigarettes, uncomplicated; D69.6 Thrombocytopenia, unspecified; Z79.82 Long term (current) use of aspirin; M54.30 Sciatica, unspecified side; R33.9 Retention of urine, unspecified; K59.00 Constipation, unspecified; G47.33 Obstructive sleep apnea (adult) (pediatric)
CPT/HCPCS: 12345; 36415; 36416; 51702; 71045; 73502; 76770; 76857; 80048; 80053; 81001; 81003; 82550; 82728; 82962; 83735; 84145; 84443; 84484; 85025; 85378; 86140; 87426; 87635; 93005; 93306; 94640; 96372; 96375; 97110; 97116; 97162; 99283; J0696; J1100; J1650; J1815; J3535; J7030; J7040; J7512